=== PATIENT | female | born 1945 | race African-American/Black ===

== ENCOUNTER 2016-10-09 05:58 | Inpatient (IN) ==
[2016-10-09] MEDS ORDERED: VANCOMYCIN INJ 1,000 MG in SODIUM CHLORIDE 0.9% 250 ML IV ONE (06:00)
[2016-10-09] MEDS ORDERED: SODIUM CHLORIDE 0.9% 100 ML IV ONE (06:06)
[2016-10-09] MEDS ORDERED: VANCOMYCIN 1,000 MG VIAL ONE (06:06)
[2016-10-09] MEDS ORDERED: ceFAZolin 1,000 MG VIAL ONE (06:06)
[2016-10-09] MEDS: LACTATED RINGERS 1,000 ML IV SCH ×4 (06:29→18:25)
--- NOTE | 2016-10-09 06:42 | History and Physical Update ---
History and Physical Update - History and Physical H&P was reviewed, the patient examined and there: are no changes in the patients condition since last H&P was completed.
[2016-10-09] MEDS ORDERED: TRANEXAMIC ACID 1,000 MG/10 ML VIAL IV ONE (06:54)
[2016-10-09] MEDS ORDERED: LIDOCAINE 2% 5 ML VIAL ONE (07:00)
[2016-10-09] MEDS ORDERED: PROPOFOL 200 MG/20 ML VIAL IV ONE (07:00)
[2016-10-09] MEDS ORDERED: BACITRACIN OINT 0.9 GM PACK TOP ONE (08:12)
--- NOTE | 2016-10-09 08:24 | Operative Note ---
Date of procedure: 10/09/16 Procedure: DIAGNOSIS: Left knee primary osteoarthrosis PROCEDURE: Left total knee arthroplasty (cpt #[id number]) SURGEON: Cole ELECTRICAL ESTIMATOR: Serafin George ANESTHESIA: Spinal with a postoperative adductor canal block PROCEDURE and FINDINGS: After adequate was induced, the patient's knee was prepped and draped in the usual sterile fashion. The limb was exsanguinated with Esmarch. Tourniquet was inflated to 300 mmHg. A median parapatellar approach was made. Femur was cut using an intramedullary guide and a 4 in 1 cutting jig in 5 degrees of valgus. ACL and menisci were excised. Tibia was cut using intramedullary guide. Patella was cut using freehand technique. Components were trialed. Tibial fin was prepared. Components are cemented in place using Palacos cement and modern cementing techniques. Cement was removed. A 1/8 inch Hemovac drain was placed. The knee was well-balanced and full range of motion with central tracking patella. Deep layers closed with 0-0 Vicryl. Superficial layers were closed with 2-0 and 3-0 Vicryl. Skin was approximated with tiff. Bacitracin and a sterile dressing was applied. Patient was transferred to recovery. A postoperative adductor canal block is anticipated. COMPONENTS: The Kristine Persona system was used. 7 CR narrow femur, D natural tibia, 10 mm liner, 32 mm patella TOURNIQUET TIME: 30 minutes Surgeon / Physician: Zhao Galvan Jr. Discharge Plan - Discharge Medications No Action amLODIPine [Norvasc] 5 mg PO BEDTIME Lisinopril/Hydrochlorothiazide [Lisinopril-Hctz 20-12.5 mg Tab] 1 each PO BEDTIME - Follow Up or Referral - Forms/Instructions
[2016-10-09] MEDS ORDERED: MAGNESIUM HYDROXIDE SUSP 30 ML UDCUP PO PRN (08:26)
[2016-10-09] MEDS ORDERED: ZALEPLON 5 MG CAPSULE PO PRN (08:26)
[2016-10-09] MEDS ORDERED: diphenhydrAMINE CAP 25 MG CAPSULE PO PRN (08:26)
[2016-10-09] MEDS ORDERED: ONDANSETRON 4 MG/2 ML VIAL IV PRN (08:26)
[2016-10-09] MEDS ORDERED: oxyCODONE IR 5 MG TABLET PO PRN ×2 (08:26)
[2016-10-09] MEDS ORDERED: ROPIVACAINE 0.5% 30 ML VIAL ONE (08:33)
[2016-10-09] MEDS ORDERED: MORPHINE 2 MG/1 ML SYRINGE IV PRN ×2 (09:46)
[2016-10-09] MEDS: DOCUSATE SODIUM 100 MG CAPSULE PO SCH ×2 (11:01→21:08)
[2016-10-09] MEDS: KETOROLAC 15 MG/1 ML VIAL IV SCH ×3 (11:01→21:08)
--- NOTE | 2016-10-09 11:07 | XRay Report ---
XR knee 2V LT Indication: Joint replacement Comparison: None Technique: Frontal and lateral views of the left knee Findings: Status post total left knee arthroplasty. No evidence of immediate hardware failure. Superficial skin tiff and surgical drain overlie the knee. Subcutaneous and joint space air noted which is likely postoperative. IMPRESSION: Status post total left knee arthroplasty. PROCEDURE INTERPRETED AT [facility] DEPARTMENT OF RADIOLOGY Final Report Signed by: Dr Prabhu Dupont
--- NOTE | 2016-10-09 11:19 | Pulmonology Consult Note ---
Assessment and Plan (1) Postop left total knee replacement Status: Acute Assessment and plan: Having some pain in the left knee. Surgery reportedly went well. We will get DVT prophylaxis. Current Visit: Yes (2) Essential hypertension Status: Acute Assessment and plan: Blood pressure well controlled on current medications of amlodipine and lisinopril/HCTZ. Current Visit: Yes (3) Recent urinary tract infection Status: Acute Assessment and plan: Had an E. coli urinary tract infection treated with Cipro. It was sensitive to the Cipro. She completed antibiotics last week. Current Visit: Yes History of Present Illness Chief complaint: Postop left knee replacement History of present illness: Ms. Burrell is a 71 year old female who had a left total knee replacement this morning. She has a history of hypertension. I saw her for clearance about 2 weeks ago. She had an abnormal EKG indicating an old inferior scar however an echocardiogram revealed that that was normal and so she has not had a previous myocardial infarction. She had an abnormal urinalysis and grew out a positive culture for E. coli. It was treated with a week's worth of Cipro when symptoms have resolved. She had surgery this morning and apparently did well with it however she is having a good bit of pain at the moment. She has not had a recent upper respiratory infection. Home Medications Medication Instructions Recorded Confirmed Type Lisinopril/Hydrochlorothiazide 1 each PO BEDTIME 10/08/16 10/09/16 History [Lisinopril-Hctz 20-12.5 mg Tab] amLODIPine [Norvasc] 5 mg PO BEDTIME 10/08/16 10/09/16 History Allergies Allergy/AdvReac Type Severity Reaction Status Date / Time No Known Allergies Allergy Unverified 10/09/16 06:12 12 point system: reviewed and no additional remarkable complaints except as stated - EENT Nose, mouth and throat: Present: hoarseness - Genitourinary Genitourinary: Present: dysuria (This is resolved) - Musculoskeletal Musculoskeletal: Present: arthralgias (Knee pain on the left side) Exam (Pulmonay) H&P - Constitutional Vitals: Period Temp Pulse Resp BP Sys/Pino Pulse Ox Last 24 Hr 97.2 F-98.1 F 54-64 16-18 116-169/47-81 96-100 Exam: Patient is alert and oriented. Vital signs normal. Pupils react to light. Throat is clear. Neck supple no bruits. Chest is clear equal breath sounds. Heart normal rate and rhythm grade 1/6 systolic murmur at the right base. Abdomen soft nontender no masses. Bowel sounds present. Extremities no clubbing cyanosis or edema. She has a bandage in a brace on the left knee. Calves are nontender. Medical,Surgical,& Family Hx - Medical History Cardio: History of: Cerebrovascular Disease (HEART MURMUR.), Hypertension Neurology: No history of: Seizures HEENT: History of: Eye Problem (READING GLASSES), Dental Problems (FULL SET) Respiratory: Comment Only: Respiratory Problems (FLU VAC-NO; PNEU VAC-NO) Other: History of: Cancer (UTERINE CANCER) - Surgical History Reproductive Surgeries: Surgical HX of;: Hysterectomy (PARTIAL) Orthopedic Surgeries: Surgical HX of;: Total Knee Replacement (left) - Social History Smoking Status: Never smoker Frequency of Alcohol Use: None Type of Drug Use: None Results - Labs Labs: Preoperative outpatient labs were normal. Creatinine 0.7, potassium 4.0, sodium 141, hematocrit 40.8, hemoglobin 13.8 and platelet count was 290,000. PT /INR 1.0 Specialty Discharge - Follow Up or Referrals Follow up with: Zhao Galvan Jr., MD [Physician] -
[2016-10-09] MEDS ORDERED: MIDAZOLAM 2 MG/2 ML VIAL ONE (11:37)
[2016-10-09] MEDS ORDERED: KETAMINE 500 MG/10 ML VIAL ONE (11:38)
[2016-10-09] MEDS: ceFAZolin 2,000 MG in PREMIX 1 EACH IV SCH ×2 (13:40→21:08)
[2016-10-09] MEDS: ACETAMINOPHEN 500 MG TABLET PO SCH ×2 (13:40→18:25)
--- NOTE | 2016-10-09 17:33 | Orthopedic Progress Note ---
Orthopedics - Subjective Interval history: Ms. Burrell is comfortable. She sat in the chair for about an hour. Left lower extremities neurovascularly intact. Dressings clean, dry and intact. Plan: Continue with current postoperative orders. Exam - Constitutional Vitals: Period Temp Pulse Resp BP Sys/Pino Pulse Ox Last 24 Hr 97.2 F-98.9 F 50-66 16-20 94-169/47-81 96-100 Specialty Discharge - Follow Up or Referrals Follow up with: Zhao Galvan Jr., MD [Physician] -
--- NOTE | 2016-10-09 18:12 | Anesthesia Post-Op ---
Anesthesia Post OP - Post Ansesthetic Evaluation Patient seen in post op: Yes Resp: within normal limits CV: within normal limits Mental: within normal limits Temp: within normal limits [id number]: within normal limits Nausea and Vomiting: within normal limits Pain: within normal limits
[2016-10-09] MEDS: amLODIPine 5 MG TABLET PO SCH (21:08)
[2016-10-09] MEDS: LISINOPRIL/HCTZ 20-12.5 MG TABLET PO SCH (21:08)
[2016-10-10] MEDS: ACETAMINOPHEN 500 MG TABLET PO SCH ×2 (00:50→06:34)
[2016-10-10] MEDS: KETOROLAC 15 MG/1 ML VIAL IV SCH (04:03)
[2016-10-10] MEDS: LACTATED RINGERS 1,000 ML IV SCH (04:27)
[2016-10-10 06:33] LABS: Basophils % 0.2 % (0.0-0.8); Eosinophils # 0.2 10*3/uL (0.0-0.87); Eosinophils % 1.8 % (0.00-10.9); Hematocrit 31.5 VOL% (35.7-47.0); Immature Granulocytes % 0.5 %; Immature Granulocytes Absolute 0.05 #; Lymphocytes # 1.6 10*3/uL (1.4-4.0); Lymphocytes % 15.6 % (21.3-54.2); Mean Corpuscular HGB Conc 34.9 GM/DL (32-36); Mean Corpuscular Hemoglobin 30 PG (27-34); Mean Corpuscular Volume 85.1 FL (87-102); Mean Platelet Volume 9.4 FL (9.6-12.0); Monocytes # 0.9 10*3/uL (0.11-0.8); Monocytes % 8.7 % (1.7-12.7); Neutrophils # 7.3 10*3/uL (1.4-7.4); Neutrophils % 73.2 % (38.7-73.9); Platelet Count 219 T/CUMM (130-400); Red Cell Distribution Width 12.2 % (9.3-17.3)
[2016-10-10] MEDS: FONDAPARINUX 2.5 MG/0.5 ML SYRINGE SUBCUT SCH (06:34)
[2016-10-10 07:07] LABS: Calcium 8.3 MG/DL (8.5-10.1); Osmolality,Calculated 282.8 MOS/KG (273-304); Potassium 3.6 MMOL/L (3.5-5.1)
--- NOTE | 2016-10-10 07:21 | Orthopedic Progress Note ---
Orthopedics - Subjective Interval history: Ms. Burrell is comfortable this morning. She can comfortably perform a straight leg raise. Her dressing is clean, dry and intact. Left foot and ankle are neurovascularly intact. Plan: Mobilize with physical therapy. Tentatively plan home tomorrow. Exam - Constitutional Vitals: Period Temp Pulse Resp BP Sys/Pino Pulse Ox Last 24 Hr 97.2 F-99.3 F 50-69 16-20 94-152/47-81 93-100 Results - Labs CBC & BMP: 10/10/16 06:16 10/10/16 06:16 Specialty Discharge - Follow Up or Referrals Follow up with: Zhao Galvan Jr., MD [Physician] -
--- NOTE | 2016-10-10 07:21 | Pulmonology Progress Note ---
Pulmonary - PN: Subj Interval history: This 71-year-old black female had a left total knee replacement yesterday. This morning she is feeling better. She was able to sit up yesterday. Her pain is much improved. Calves are nontender. Continuing with postoperative physical therapy. Exam (Progress Note) - Constitutional Vitals: Period Temp Pulse Resp BP Sys/Pino Pulse Ox Last 24 Hr 97.2 F-99.3 F 50-69 16-20 94-152/47-81 93-100 Exam: Vital signs normal. Pupils react to light. Throat is clear. Neck supple no bruits. Chest is clear equal breath sounds. Heart normal rate and rhythm grade 1/6 systolic murmur. Abdomen soft nontender no masses. Extremities no clubbing cyanosis edema. Brace and bandage on left leg. Results - Labs CBC & BMP: 10/10/16 06:16 10/10/16 06:16 Lab Results: I have reviewed the past 24 hour labs Assessment and Plan (1) Postop left total knee replacement Status: Acute Assessment and plan: Having some pain in the left knee. Surgery reportedly went well. We will get DVT prophylaxis. 10/10/2016 seems to be doing well postoperatively at this point. No calf pains. Participating in physical therapy. Current Visit: Yes (2) Essential hypertension Status: Acute Assessment and plan: Blood pressure well controlled on current medications of amlodipine and lisinopril/HCTZ. 10/10/2016 blood pressure well controlled on current medicines. Current Visit: Yes (3) Recent urinary tract infection Status: Acute Assessment and plan: Had an E. coli urinary tract infection treated with Cipro. It was sensitive to the Cipro. She completed antibiotics last week. Current Visit: Yes Specialty Discharge - Follow Up or Referrals Follow up with: Zhao Galvan Jr., MD [Physician] -
[2016-10-10] MEDS: DOCUSATE SODIUM 100 MG CAPSULE PO SCH ×2 (09:57→21:23)
[2016-10-10] MEDS: CELECOXIB 200 MG CAPSULE PO SCH (16:04)
[2016-10-10] MEDS: amLODIPine 5 MG TABLET PO SCH (21:23)
[2016-10-10] MEDS: LISINOPRIL/HCTZ 20-12.5 MG TABLET PO SCH (21:23)
[2016-10-11] MEDS: FONDAPARINUX 2.5 MG/0.5 ML SYRINGE SUBCUT SCH (05:25)
--- NOTE | 2016-10-11 07:17 | Discharge Summary ---
Hospital Course - Hospital Course Hospital Course: Lyric Burrell was admitted after undergoing a left total knee arthroplasty. She received perioperative DVT and antimicrobial prophylaxis. She received physical therapy and was discharged home postoperative day #2 in stable condition. Specialty Discharge - Follow Up or Referrals Follow up with: Zhao Galvan Jr., MD [Physician] - Discharge Plan - Discharge Data Disposition: Home Health Service Condition at Discharge: Stable Discharge Diet: advance to your usual diet Hygiene: may shower Weight Bearing at Discharge: weight bear as tolerated Driving: not until seen by doctor - Discharge Medications New HYDROcodone/ACETAMIN 7.5-325 [[place] 7.5-325] 1 tablet PO Q4H PRN #0 tablet PRN Reason: Pain Moderate (4-7) HYDROcodone/ACETAMIN 7.5-325 [[place] 7.5-325] 2 tablet PO Q4H PRN #0 tablet PRN Reason: Moderate Pain unrelieved by 1 Continue amLODIPine [Norvasc] 5 mg PO BEDTIME Lisinopril/Hydrochlorothiazide [Lisinopril-Hctz 20-12.5 mg Tab] 1 each PO BEDTIME - Follow Up or Referral Follow Up: Zhao Galvan Jr., MD [Physician] - - Forms/Instructions Instructions: Total Knee Replacement (DC) Additional Discharge Instructions: Daily dry dressing changes. Weightbearing as tolerated. CPM for 3 weeks. Arrange walker and bedside commode for home use. Wear THELMA hose for 1 month. Discontinue tiff and Steri-Strip wound on October 21, 2016. Follow-up appointment in 4 weeks. Take aspirin 325 mg by mouth daily for 21 days. Exam - Constitutional Vitals: Period Temp Pulse Resp BP Sys/Pino Pulse Ox Last 24 Hr 98.2 F-98.9 F 62-72 16-20 114-127/54-73 95-99 Discharge Results Procedures and tests throughout hospitalization: Pending Orders 10/11/16 04:00 Comp Blood Count Auto Diff IN AM 10/12/16 04:00 Comp Blood Count Auto Diff IN AM DS: Provider Date of admission: 10/09/16 05:58 Primary care physician: Noel Dong Attending physician on admission: Zhao Galvan Jr., Consults: 10/09/16 08:26 Consult to Case Mgmt/Social Srvs [CONS] Routine Reason for Case Mgmt/Social Srvs: Rehab Home Health Equipment Consult Comment: Bedside Commode, CPM, Walker Consult to Occupational Therapy [CONS] Routine Reason for Occupational Therapy: Evaluate and Treat Consult Comment: ADL's Consult to Physical Therapy [CONS] Routine Reason for Physical Therapy: Evaluate and Treat Gait Training Start Therapy: Today 10/09/16 09:31 Consult to Pharmacy [CONS] Routine Reason for Pharmacy Consult: Adjust Meds Renal Funct 10/09/16 10:23 Consult to Physician [CONS] Routine Comment: Consulting Provider: Kevyn Valenzuela Consulting Provider Notified: Yes When should Consulting Provider be notified: Now Person Notified: tanvir wray Date Notified: 10/09/16 Time Notified: 10:24 Discharging clinician: Zhao Galvan Jr., Expected date of discharge: 10/11/16
--- NOTE | 2016-10-11 07:18 | Pulmonology Progress Note ---
Pulmonary - PN: Subj Interval history: This 71-year-old black female had a left total knee replacement yesterday. This morning she is feeling better. She was able to sit up yesterday. Her pain is much improved. Calves are nontender. Continuing with postoperative physical therapy. 10/11/2016 patient has done well with surgery and is ready for discharge. She will finish her rehab at home. Blood pressure has been normal. Exam (Progress Note) - Constitutional Vitals: Period Temp Pulse Resp BP Sys/Pino Pulse Ox Last 24 Hr 98.2 F-98.9 F 62-72 16-20 114-127/54-73 95-99 Exam: Vital signs normal. Pupils react to light. Throat is clear. Neck supple no bruits. Chest is clear equal breath sounds. Heart normal rate and rhythm grade 1/6 systolic murmur. Abdomen soft nontender no masses. Extremities no clubbing cyanosis edema. Brace and bandage on left leg. Little change from yesterday. Results - Labs CBC & BMP: 10/10/16 06:16 10/10/16 06:16 Lab Results: I have reviewed the past 24 hour labs Assessment and Plan (1) Postop left total knee replacement Status: Acute Assessment and plan: Having some pain in the left knee. Surgery reportedly went well. We will get DVT prophylaxis. 10/10/2016 seems to be doing well postoperatively at this point. No calf pains. Participating in physical therapy. 10/11/2016 making good progress with rehab. Ready for discharge. Current Visit: Yes (2) Essential hypertension Status: Acute Assessment and plan: Blood pressure well controlled on current medications of amlodipine and lisinopril/HCTZ. 10/10/2016 blood pressure well controlled on current medicines. 10/11/2016 blood pressure is well controlled on current medications. Should continue them at home Current Visit: Yes (3) Recent urinary tract infection Status: Acute Assessment and plan: Had an E. coli urinary tract infection treated with Cipro. It was sensitive to the Cipro. She completed antibiotics last week. Current Visit: Yes Specialty Discharge - Follow Up or Referrals Follow up with: Zhao Galvan Jr., MD [Physician] -
[2016-10-11 07:53] VITALS: BP 110/66
[2016-10-11 08:21] LABS: Basophils % 0.3 % (0.0-0.8); Eosinophils # 0.3 10*3/uL (0.0-0.87); Eosinophils % 2.3 % (0.00-10.9); Hematocrit 35.1 VOL% (35.7-47.0); Hemoglobin 11.6 GM/DL (12.0-16.0); Immature Granulocytes % 0.3 %; Immature Granulocytes Absolute 0.04 #; Lymphocytes # 2.4 10*3/uL (1.4-4.0); Lymphocytes % 20.7 % (21.3-54.2); Mean Corpuscular Hemoglobin 29 PG (27-34); Mean Corpuscular Volume 88.6 FL (87-102); Monocytes # 0.9 10*3/uL (0.11-0.8); Monocytes % 8.1 % (1.7-12.7); Neutrophils # 7.9 10*3/uL (1.4-7.4); Neutrophils % 68.3 % (38.7-73.9); Platelet Count 267 T/CUMM (130-400); Red Blood Count 3.96 MC/CUMM (3.8-5.5); Red Cell Distribution Width 12.4 % (9.3-17.3); White Blood Count 11.5 T/CUMM (4-12)
[2016-10-11] MEDS: CELECOXIB 200 MG CAPSULE PO SCH (10:01)
[2016-10-11] MEDS: DOCUSATE SODIUM 100 MG CAPSULE PO SCH (10:01)
== END 2016-10-11 12:10 | disposition home health service (06) | DRG 470 ==
LOC: N.SDSINP 05:58 → N.3E 09:14
PROVIDERS: ADMIT Orthopaedic Surgery; ATTEND Orthopaedic Surgery

== ENCOUNTER 2019-02-03 05:49 | Inpatient (IN) ==
[~2019-02-03 05:49] MED LIST: VANCOMYCIN 1,000 MG VIAL ONE; ceFAZolin 1,000 MG VIAL ONE
[2019-02-03] MEDS ORDERED: ceFAZolin 1,000 MG in SYRINGE 1 EACH IV ONE (06:30)
[2019-02-03] MEDS ORDERED: VANCOMYCIN INJ 1,000 MG in SODIUM CHLORIDE 0.9% 250 ML IV ONE (06:30)
[2019-02-03] MEDS ORDERED: EPINEPHrine 1 MG/ML VIAL ONE (07:12)
[2019-02-03] MEDS ORDERED: MIDAZOLAM 2 MG/2 ML VIAL ONE ×2 (07:12→10:36)
[2019-02-03] MEDS ORDERED: fentaNYL 100 MCG/2 ML VIAL ONE ×2 (07:12→10:36)
[2019-02-03] MEDS ORDERED: BUPIVACAINE 0.5% 50 ML VIAL ONE (07:12)
[2019-02-03] MEDS ORDERED: DEXAMETHASONE 4 MG/1 ML VIAL ONE (07:12)
[2019-02-03] MEDS ORDERED: LACTATED RINGERS 1,000 ML IV SCH (07:30)
[2019-02-03] MEDS ORDERED: GABAPENTIN 400 MG CAPSULE PO ONE (07:44)
[2019-02-03] MEDS ORDERED: FAMOTIDINE 20 MG TABLET PO ONE (07:44)
[2019-02-03] MEDS ORDERED: ACETAMINOPHEN 500 MG TABLET PO ONE (07:44)
[2019-02-03] MEDS ORDERED: GABAPENTIN 400 MG CAPSULE ONE (07:52)
[2019-02-03] MEDS ORDERED: ACETAMINOPHEN 500 MG TABLET ONE (07:52)
[2019-02-03] MEDS ORDERED: FAMOTIDINE 20 MG TABLET ONE (07:52)
[2019-02-03] MEDS ORDERED: BUPIVACAINE SPINAL 0.75% 2 ML AMP SPINAL ONE (08:26)
[2019-02-03] MEDS ORDERED: MORPHINE 10 MG/10 ML VIAL ONE (08:27)
[2019-02-03] MEDS ORDERED: TRANEXAMIC ACID 1,000 MG/10 ML VIAL ONE (09:05)
[2019-02-03] MEDS ORDERED: LACTULOSE 20 GM/30 ML UDCUP PO PRN (10:10)
[2019-02-03] MEDS ORDERED: diphenhydrAMINE CAP 25 MG CAPSULE PO PRN (10:10)
[2019-02-03] MEDS ORDERED: PROMETHAZINE 25 MG/1 ML VIAL IM PRN (10:10)
[2019-02-03] MEDS ORDERED: MAGNESIUM HYDROXIDE SUSP 30 ML UDCUP PO PRN (10:10)
[2019-02-03] MEDS ORDERED: TEMAZEPAM 7.5 MG CAPSULE PO PRN (10:10)
[2019-02-03] MEDS ORDERED: MORPHINE 4 MG/1 ML VIAL IV PRN (10:10)
[2019-02-03] MEDS ORDERED: BISACODYL 10 MG SUPP RECTAL PRN (10:10)
[2019-02-03] MEDS ORDERED: ONDANSETRON 4 MG/2 ML VIAL IV PRN (10:10)
[2019-02-03] MEDS ORDERED: LACTATED RINGERS 1,000 ML IV ONE (10:36)
[2019-02-03] MEDS ORDERED: propofoL 200 MG/20 ML VIAL IV ONE (10:36)
[2019-02-03] MEDS ORDERED: ePHEDrine 50 MG/ML AMP ONE (10:36)
[2019-02-03] MEDS ORDERED: SODIUM CHLORIDE 0.9% 100 ML IV ONE (10:36)
[2019-02-03] MEDS ORDERED: MORPHINE 10 MG/1 ML VIAL IV PRN (12:00)
[2019-02-03 13:13] LABS: Basophils % 0.3 % (0.0-0.8); Hematocrit 38.1 VOL% (35.7-47.0); Hemoglobin 12.7 GM/DL (12.0-16.0); Immature Granulocytes % 0.6 %; Lymphocytes # 0.6 10*3/uL (1.4-4.0); Lymphocytes % 3.9 % (21.3-54.2); Mean Corpuscular HGB Conc 33.3 GM/DL (32-36); Mean Corpuscular Volume 89.9 FL (87-102); Mean Platelet Volume 8.8 FL (9.6-12.0); Neutrophils % 93.2 % (38.7-73.9); Platelet Count 250 T/CUMM (130-400); Red Blood Count 4.24 MC/CUMM (3.8-5.5); Red Cell Distribution Width 12.8 % (9.3-17.3); White Blood Count 15.6 T/CUMM (4-12)
[2019-02-03 13:37] LABS: Calcium 8.7 MG/DL (8.5-10.1); Osmolality,Calculated 280.4 MOS/KG (273-304)
[2019-02-03 14:24] LABS: Lymphocytes 5 % (20-55); Segmented Neutrophils 93 % (50-85); Total Cells Counted 100
[2019-02-03 14:25] LABS: Macrocytosis Slight; Platelet Estimate Adequate; Polychromasia Slight
[2019-02-03 14:29] LABS: Apearance,Urine Slightly Hazy (Clear); Bacteria,Urine Occasional /HPF (Few); Bilirubin,Urine Negative (Negative); Blood, Urine Small mg/dL (Negative); Glucose,Urine (UA) Negative (Negative); Ketones,Urine Negative (Negative); Nitrite,Urine Negative (Negative); Protein,Urine Negative; RBC,Urine 4 /HPF (0-4); Squamous Epithelial Cell,Urine Few /HPF (0-10); Urine Color Yellow (Yellow); Urine Specific Gravity 1.011 (1.001-1.035); Urine Urobilinogen < 2.0 EU/DL (0.2-1.0); WBC,Urine 4 /HPF (0-6)
[2019-02-03] MEDS: ceFAZolin 1,000 MG in SYRINGE 1 EACH IV SCH ×2 (14:49→21:05)
[2019-02-03] MEDS: CIPROFLOXACIN 500 MG TABLET PO SCH (21:04)
[2019-02-03] MEDS: DOCUSATE SODIUM 100 MG CAPSULE PO SCH (21:05)
[2019-02-03] MEDS: amLODIPine 5 MG TABLET PO SCH (21:05)
[2019-02-03] MEDS: LISINOPRIL/HCTZ 20-12.5 MG TABLET PO SCH (21:05)
[2019-02-03] MEDS: FONDAPARINUX 2.5 MG/0.5 ML SYRINGE SUBCUT SCH (21:05)
[2019-02-04 05:31] LABS: Basophils % 0.4 % (0.0-0.8); Hematocrit 35.7 VOL% (35.7-47.0); Hemoglobin 12.1 GM/DL (12.0-16.0); Immature Granulocytes % 0.5 %; Immature Granulocytes Absolute 0.05 #; Lymphocytes # 0.9 10*3/uL (1.4-4.0); Lymphocytes % 7.9 % (21.3-54.2); Mean Corpuscular HGB Conc 33.9 GM/DL (32-36); Mean Corpuscular Volume 87.5 FL (87-102); Monocytes % 8.3 % (1.7-12.7); Neutrophils % 82.9 % (38.7-73.9); Platelet Count 245 T/CUMM (130-400); Red Blood Count 4.08 MC/CUMM (3.8-5.5); Red Cell Distribution Width 12.7 % (9.3-17.3)
[2019-02-04 06:01] LABS: Calcium 8.8 MG/DL (8.5-10.1); Osmolality,Calculated 279.3 MOS/KG (273-304)
[2019-02-04] MEDS: DOCUSATE SODIUM 100 MG CAPSULE PO SCH ×2 (08:33→20:54)
[2019-02-04] MEDS: CIPROFLOXACIN 500 MG TABLET PO SCH ×2 (08:34→20:53)
[2019-02-04] MEDS: LISINOPRIL/HCTZ 20-12.5 MG TABLET PO SCH (20:53)
[2019-02-04] MEDS: FONDAPARINUX 2.5 MG/0.5 ML SYRINGE SUBCUT SCH (20:53)
[2019-02-04] MEDS: amLODIPine 5 MG TABLET PO SCH (20:54)
[2019-02-05] MEDS: DOCUSATE SODIUM 100 MG CAPSULE PO SCH ×2 (08:37→21:02)
[2019-02-05] MEDS: CIPROFLOXACIN 500 MG TABLET PO SCH ×2 (08:37→21:02)
[2019-02-05] MEDS: amLODIPine 5 MG TABLET PO SCH (21:02)
[2019-02-05] MEDS: LISINOPRIL/HCTZ 20-12.5 MG TABLET PO SCH (21:02)
[2019-02-05] MEDS: FONDAPARINUX 2.5 MG/0.5 ML SYRINGE SUBCUT SCH (21:03)
[2019-02-06] MEDS: DOCUSATE SODIUM 100 MG CAPSULE PO SCH ×2 (10:20→21:11)
[2019-02-06] MEDS: CIPROFLOXACIN 500 MG TABLET PO SCH ×2 (10:20→21:11)
[2019-02-06] MEDS: FONDAPARINUX 2.5 MG/0.5 ML SYRINGE SUBCUT SCH (21:11)
[2019-02-06] MEDS: amLODIPine 5 MG TABLET PO SCH (21:11)
[2019-02-06] MEDS: LISINOPRIL/HCTZ 20-12.5 MG TABLET PO SCH (21:11)
[2019-02-07] MEDS: DOCUSATE SODIUM 100 MG CAPSULE PO SCH ×2 (08:51→21:15)
[2019-02-07] MEDS: CIPROFLOXACIN 500 MG TABLET PO SCH ×2 (08:51→21:15)
[2019-02-07] MEDS: FONDAPARINUX 2.5 MG/0.5 ML SYRINGE SUBCUT SCH (21:14)
[2019-02-07] MEDS: LISINOPRIL/HCTZ 20-12.5 MG TABLET PO SCH (21:14)
[2019-02-07] MEDS: amLODIPine 5 MG TABLET PO SCH (21:15)
[2019-02-08] MEDS: CIPROFLOXACIN 500 MG TABLET PO SCH ×2 (10:18→20:55)
[2019-02-08] MEDS: DOCUSATE SODIUM 100 MG CAPSULE PO SCH ×2 (10:18→20:55)
[2019-02-08] MEDS: LISINOPRIL/HCTZ 20-12.5 MG TABLET PO SCH (20:55)
[2019-02-08] MEDS: FONDAPARINUX 2.5 MG/0.5 ML SYRINGE SUBCUT SCH (20:55)
[2019-02-08] MEDS: amLODIPine 5 MG TABLET PO SCH (20:56)
[2019-02-09] MEDS: CIPROFLOXACIN 500 MG TABLET PO SCH (09:09)
[2019-02-09] MEDS: DOCUSATE SODIUM 100 MG CAPSULE PO SCH (09:09)
[2019-02-09] MEDS ORDERED: TUBERCULIN SKIN TEST 0.1 ML SYRINGE INTRADERM ONE (10:07)
[2019-02-09 12:02] VITALS: BP 115/65
== END 2019-02-09 14:42 | disposition home health service (06) | DRG 470 ==
LOC: N.SDSINP 05:49 → N.3E 11:53
PROVIDERS: ADMIT Orthopaedic Surgery; ATTEND Orthopaedic Surgery